=== PATIENT | female | born 1975 | race Caucasian/White ===

== ENCOUNTER 2019-09-23 08:37 | Outpatient (CLI) | payer OTHER, SELFPAY ==
--- NOTE | ~2019-09-23 | MM_ITS ---
EXAMINATION: MM screening [facility] w batsheva HISTORY: Screening mammogram TECHNIQUE: Bilateral rotated lateral cc views. Craniocaudal and mediolateral oblique 3-D tomosynthesi s images were obtained and synthetic 2-D images were generated. CAD analysis was submitted and interp reted. COMPARISON: 09/21/2018, 09/18/2017, 09/13/2016 bilateral digital screening mammogram examinations BREAST PARENCHYMAL COMPOSITION: The breasts are heterogeneously dense, which may obscure small masses . FINDINGS: Stable mild fibroglandular asymmetry. There is no evidence of suspicious mass, calcificatio n, or architectural distortion to suggest malignancy in either breast. There has been no suspicious i nterval change. IMPRESSION: 1. No mammographic evidence of malignancy. 2. Recommend routine screening mammography in one year. BI-RADS Category 2: Benign finding(s). Reviewed, dictated and finalized at location A. 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
== END 2019-09-23 08:38 | disposition home or self-care (01) ==
LOC: ANHIMG 08:40
PROVIDERS: PCP Internal Medicine; Visit Provider Obstetrics & Gynecology
DX: Z12.31 Encounter for screening mammogram for malignant neoplasm of breast (principal)
CPT/HCPCS: 77063; 77067

== ENCOUNTER 2019-12-30 09:27 | Emergency (ER) | payer OTHER, SELFPAY ==
[2019-12-30 09:40] VITALS: BP 107/64; PULSE 73; RESP 18; TEMP 37.1; O2SAT 100
--- NOTE | 2019-12-30 09:42 | ED.SKABFB ---
HPI - Skin/Abscess/Foreign Bdy General Chief complaint: Skin/Abscess/Foreign Body Stated complaint: poison diogenes Time Seen by Provider: 12/30/19 09:43 Source: patient and RN notes reviewed Mode of arrival: ambulatory Limitations: no limitations History of Present Illness HPI narrative: This is a 44 years old female presented office for evaluation itchy rash. She has been working in her yard for the last 5-day doing some cleaning around her property. She is very certain that she had come in contact with poison diogense because her also has it but it is not as bad as her. She took Benadryl and tried calamine lotion with no relief. Related Data Home Medications Medication Instructions Recorded Confirmed metoprolol tartrate 50 mg PO DAILY 12/30/19 12/30/19 sertraline 100 mg PO DAILY 12/30/19 12/30/19 Allergies Allergy/AdvReac Type Severity Reaction Status Date / Time codeine Allergy Intermediate Unknown Verified 12/30/19 09:43 Review of Systems Review of Systems: Narrative: CONSTITUTIONAL: Denies feeling ill ENT: Denies sore mouth CARDIOVASCULAR: Denies chest pain RESPIRATORY: Denies dyspnea GASTROINTESTINAL: Denies abdominal pain, nausea, vomiting SKIN: Reports itchy rash on her arm, chest and neck MUSCULOSKELETAL: Denies joints pain NEUROLOGIC: Denies lightheaded PMFSH Past Medical History Medical History Anxiety and depression Comments At time of signature, I agree with nursing past medical, surgical, social and family history. There is no relevant family history pertinent to the presenting complaint. Exam Narrative: Exam Narrative: GENERAL: This is a well-nourished, well-developed patient, in no apparent distress. THROAT: Mucous membranes moist, posterior pharynx clear. NECK: Neck supple, non-tender without lymphadenopathy, masses or thyromegaly. CARDIOVASCULAR: Regular rate and rhythm without murmurs, gallops, or rubs. RESPIRATORY: Clear to auscultation. Breath sounds equal bilaterally. No wheezes, rales, or rhonchi. GASTROINTESTINAL: Abdomen soft, non-tender, nondistended. Bowel sounds are active. No guarding. NEURO: awake, alert, and oriented to person, place and time. There were no obvious focal neurologic abnormalities. Steady gait EXTREMITIES: right anterior arm noted linear swcyse-hoswjqumx-leaewqs erythema lesions, mid chest noted similar lesion; no obvious rash on her neck; however she has calamine lotion on her it. [place] Coma Scale Eye Opening: Spontaneous 4 [place] Coma Scale Motor: Obeys Commands 6 [place]athon Coma Scale Verbal: Oriented 5 Course Vital Signs Vital signs: Vital Signs Temperature 98.7 F 12/30/19 09:40 Pulse Rate 73 12/30/19 09:40 Respiratory Rate 18 12/30/19 09:40 Blood Pressure 107/64 12/30/19 09:40 Pulse Oximetry 100 12/30/19 09:40 Temperature 98.7 F 12/30/19 09:40 Pulse Rate 73 12/30/19 09:40 Respiratory Rate 18 12/30/19 09:40 Blood Pressure 107/64 12/30/19 09:40 Pulse Oximetry 100 12/30/19 09:40 MDM - Skin/Abscess/Foreign Bdy MDM Narrative Medical decision making narrative: Discharge instructions reviewed with patient, as well as provided in writing per nursing staff. The instructions also include specific and strict return/GO TO THE ER as well as f/u information. All questions have been answered, and the patient deny any further questions with discharge and discharge plan. Differential Diagnosis Differential diagnosis: Likely abscess of skin or subcutaneous tissue, dermatophytosis, urticaria, allergic reaction to drug, cellulitis, eczema, insect bites, impetigo and contact dermatitis Critical Care Time Critical Care Time Critical Care Time: No Discharge Plan Discharge Clinical Impression: Contact dermatitis Qualifiers: Contact dermatitis type: unspecified Contact dermatitis trigger: non-food plants Qualified Code(s): L25.5 - Unspecified contact dermatitis due t
== END 2019-12-30 09:55 | disposition home or self-care (01) ==
PROVIDERS: Emergency Provider Nurse Practitioner; PCP Internal Medicine
DX: L25.5 Unspecified contact dermatitis due to plants, except food (principal); I10 Essential (primary) hypertension
CPT/HCPCS: 99213; G0463

== ENCOUNTER 2020-09-24 07:19 | Outpatient (CLI) | payer OTHER, SELFPAY ==
--- NOTE | ~2020-09-24 | MM_ITS ---
EXAMINATION: MM screening [facility] BI w batsheva HISTORY: Screening TECHNIQUE: Craniocaudal and mediolateral oblique 3-D tomosynthesis images were obtained and synthetic 2-D images were generated. CAD analysis was submitted and interpreted. COMPARISON: Comparison to multiple prior studies sequentially, with oldest reviewed study dated 09/11. BREAST PARENCHYMAL COMPOSITION: The breasts are heterogeneously dense, which may obscure small masses . FINDINGS: There is no evidence of suspicious mass, calcification, or architectural distortion to sugg est malignancy in either breast. There has been no suspicious interval change. IMPRESSION: 1. No mammographic evidence of malignancy. 2. Recommend routine screening mammography in one year. BI-RADS Category 1: Negative Reviewed, dictated and finalized at location A. 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
== END 2020-09-24 07:20 | disposition home or self-care (01) ==
LOC: ANHIMG 07:22
PROVIDERS: PCP Internal Medicine; Visit Provider Obstetrics & Gynecology
DX: Z12.31 Encounter for screening mammogram for malignant neoplasm of breast (principal)
CPT/HCPCS: 77063; 77067

== ENCOUNTER 2020-10-26 14:00 | Outpatient (CLI) | payer OTHER, SELFPAY ==
--- NOTE | 2020-10-26 14:03 | ECG_ITS ---
Measurements Intervals [place] Rate: 75 P: 55 NM: 155 QRS: 59 QRSD: 93 T: 43 QT: 378 QTc: 424 Interpretive Statements SINUS RHYTHM BASELINE ARTIFACT- I, II, AVR, AVL NORMAL ECG Electronically Signed On 10-26-2020 14:19:36 CDT by Peyman Valdez D.O.
== END 2020-10-26 14:01 | disposition home or self-care (01) ==
LOC: ANHSURGERY 14:02
PROVIDERS: PCP Internal Medicine; Visit Provider Obstetrics & Gynecology
DX: Z01.810 Encounter for preprocedural cardiovascular examination (principal); I10 Essential (primary) hypertension
CPT/HCPCS: 93005

== ENCOUNTER → 2020-10-31 01:22 | Outpatient (CLI) | payer OTHER, SELFPAY ==
[2020-10-31 18:53] LABS: SARS-CoV-2 RNA PCR Negative
== END ==
PROVIDERS: PCP Internal Medicine; Visit Provider Obstetrics & Gynecology
DX: Z01.812 Encounter for preprocedural laboratory examination (principal); Z20.822 Contact with and (suspected) exposure to COVID-19
CPT/HCPCS: C9803; U0003; U0005

== ENCOUNTER 2020-11-04 02:16 | Day surgery (SDC) | payer OTHER, SELFPAY ==
[2020-10-20 09:29] VITALS: BMI 30.2
[2020-11-04 11:09] VITALS: BP 111/54; PULSE 61; RESP 16; TEMP 36.2; O2SAT 100
[2020-11-04] MEDS: ACETAMINOPHEN 500 MG TABLET 1000 MG PO (11:24)
[2020-11-04] MEDS: LACTATED RINGERS 1,000 ML 30 ML IV CONT (11:25)
--- NOTE | 2020-11-04 11:42 | WPDANESEPPF ---
Anes - Initial Pre Proc Eval Procedure: Operation Date: 11/04/20 12:45 Proposed Procedures p Hysteroscopy Dilation and Curettage - Nicola Arita MD Date/Time: 11/04/20 11:42 Surgeon: Nicola Arita MD Pre Op Diagnosis: abnornal PAP Patient Data Age: 45 Gender: F Height: 5 ft Weight: 71.6 kg Last Vital Signs Temp 36.2 C L 11/04/20 11:09 Pulse 61 11/04/20 11:09 Resp 16 11/04/20 11:09 BP 111/54 L 11/04/20 11:09 Pulse Ox 100 11/04/20 11:09 Allergies Allergy/AdvReac Type Severity Reaction Status Date / Time codeine Allergy Intermediate Rash Verified 11/04/20 11:07 Home Medications Medication Instructions Recorded Confirmed Type metoprolol tartrate 50 mg PO BID 12/30/19 11/04/20 History sertraline 100 mg PO HS 12/30/19 11/04/20 History biotin 1 caplet BYMOUTH DAILY 10/20/20 11/04/20 History lactobacillus combination no.4 3,000 mmu cells PO DAILY 10/20/20 11/04/20 History [Probiotic] gsyoqmyropcx-Gp-cvxo-minerals 1 tablet PO DAILY 10/20/20 11/04/20 History [Women's Daily Multivitamin] turmeric 400 mg PO DAILY 10/20/20 11/04/20 History Patient hx anesthesia problems: none Family hx anesthesia problems: none PMFSH Past Medical History Medical History Anxiety and depression Family History Family History Mother Hypertension Father Hypertension Social History Social History Smoking packs per day: 1.5 Smoking cigarettes per day: 30.0 Years smoked: 20 Smoking pack-years: 30.00 Smoking status: Former smoker Tobacco type: cigarettes Second hand tobacco smoke exposure: No Smoking end date: 08/24/14 Alcohol intake: never Substance use: never Living arrangements: with family Spiritual care concerns: No Anes - Eval Final PreProcedure Day of Procedure 11/04/20 11:42 Patient weight: overweight Heart: regular rate and rhythm Lungs: clear to auscultation Airway: Mallampati scale class II Neurological: alert and oriented Last oral intake: >/= 8 hours ASA classification: II Emergent: no Anesthetic plan: proceed Anesthesia type and monitoring: general GIVS and standard monitoring Informed Consent: The patient's anesthetic plan and its attendant risks and benefits were discussed with the patient/family/POA. Questions were solicited and answers provided to the satisfaction of the patient/family/POA.
--- NOTE | 2020-11-04 12:12 | PM.IMHP ---
H&P: HPI History of Present Illness Date/Time: 11/04/20 12:12 45 y/o female presents for evaluation of endometrial cells on pap. No irregular bleed and no hx of abN paps. Chief Complaint: abnormal pap smear Review of Systems Review of Systems: All systems reviewed & are unremarkable except as noted in HPI and below PMFSH Past Medical History Medical History Anxiety and depression Family History Family History Mother Hypertension Father Hypertension Social History Social History Smoking packs per day: 1.5 Smoking cigarettes per day: 30.0 Years smoked: 20 Smoking pack-years: 30.00 Smoking status: Former smoker Tobacco type: cigarettes Second hand tobacco smoke exposure: No Smoking end date: 08/24/14 Alcohol intake: never Substance use: never Living arrangements: with family Spiritual care concerns: No Meds Home Medications and Allergies Home Medications Medication Instructions Recorded Confirmed Type metoprolol tartrate 50 mg PO BID 12/30/19 11/04/20 History sertraline 100 mg PO HS 12/30/19 11/04/20 History biotin 1 caplet BYMOUTH DAILY 10/20/20 11/04/20 History lactobacillus combination no.4 3,000 mmu cells PO DAILY 10/20/20 11/04/20 History [Probiotic] zesfgvujgziz-Rm-mkqx-minerals 1 tablet PO DAILY 10/20/20 11/04/20 History [Women's Daily Multivitamin] turmeric 400 mg PO DAILY 10/20/20 11/04/20 History Allergies Allergy/AdvReac Type Severity Reaction Status Date / Time codeine Allergy Intermediate Rash Verified 11/04/20 11:07 Vital Signs Vital Signs - 24 hr 11/04/20 11:09 Temperature 36.2 C L Pulse Rate 61 Respiratory Rate 16 Blood Pressure 111/54 L Pulse Oximetry 100 Exam Const: General: cooperative and healthy appearing Resp: Effort & Inspection: normal respiratory effort Auscultation: clear to auscultation bilaterally Cardio: Rate: regular rate Rhythm: regular rhythm GI: Inspection: normal to inspection Percussion: Yes normal to percussion Auscultation: normal bowel sounds : External Female Exam: normal external appearance Speculum Exam - Vagina: normal appearance of the vagina Speculum Exam - Cervix: normal appearance of the cervix Bimanual exam- vagina & uterus: normal bimanual exam Assessment and Plan Assessment and plan (1) Abnormal Pap smear of cervix: Code(s): R87.619 - Unspecified abnormal cytological findings in specimens from cervix uteri Status: Acute Additional Plan hysteroscopy with uterine curettings.
--- NOTE | 2020-11-04 12:15 | WPDHPUPDATE1 ---
History and Physical Update Update Date/Time: 11/04/20 12:15 History and Physical has been reviewed, including an updated exam of the patient. There are NO changes in the patient's condition. Risks, benefits, and alternatives have been discussed and questions answered. Patient agrees to proceed with procedure.
[2020-11-04] MEDS: KETOROLAC 30 MG/ML VIAL (*BKC) IV PUSH (13:17)
[2020-11-04 13:25] VITALS: BP 107/66; PULSE 63; RESP 10; O2SAT 92
--- NOTE | 2020-11-04 13:28 | PM.OP ---
Procedure Note - Brief Procedure Note - Brief Date of procedure: 11/04/20 Pre-op diagnosis: abnornal PAP Post-op diagnosis: same Procedure performed: Hysteroscopy with uterine curettings Description of procedure: Patient prepped and draped in usual manner for this procedure. Cervix was dilated to allow the hysteroscope to be placed. Hysteroscope revealed slightly thickened tissue. Curettings were obtained with a moderate amount of tissue removed. There is no significant bleeding at this point seizure was considered terminated. Anesthesia: GLMA Surgeon: Nicola Arita MD Estimated blood loss (mL): 25 Drains: No Packing: No Pathology: yes Complications: No immediate complications Condition: stable Disposition: PACU Findings: Minimal endometrial tissue.
[2020-11-04 13:55] VITALS: BP 116/59; PULSE 58; RESP 10
[2020-11-04 14:30] VITALS: BP 106/65; PULSE 53; RESP 14
== END 2020-11-04 14:40 | disposition home or self-care (01) ==
PROVIDERS: PCP Internal Medicine; Visit Provider Obstetrics & Gynecology
PROC: 0U5B8ZZ Destruction of Endometrium, Via Natural or Artificial Opening Endoscopic (ICD-10-PCS; CPT 58563; principal; 2020-11-04 12:45)
DX: R87.619 Unspecified abnormal cytological findings in specimens from cervix uteri (principal); F41.8 Other specified anxiety disorders; Z87.891 Personal history of nicotine dependence
CPT/HCPCS: 58558; 88305; 93005; A9270; C9803; J1100; J1885; J2250; J2405; J2704; J3010; J7030; J7120; U0003; U0005

== ENCOUNTER → 2020-12-28 16:01 | Outpatient (CLI) | payer OTHER, SELFPAY ==
--- NOTE | ~2020-12-28 | XR_ITS ---
XR hip LT min 2V 12/28/2020 16:10 INDICATION: Left hip pain PROCEDURE: 2 views left hip COMPARISON: No prior studies FINDINGS: Fracture, dislocation or subluxation is not identified. The soft tissues appear within norm al limits. No foreign bodies are identified. IMPRESSION: 1: NO ACUTE BONE OR JOINT ABNORMALITY IDENTIFIED. Reviewed, dictated and finalized at location B.
== END ==
PROVIDERS: PCP Internal Medicine; Visit Provider Internal Medicine
DX: M25.552 Pain in left hip (principal)
CPT/HCPCS: 73502

== ENCOUNTER 2021-05-03 01:04 | Day surgery (SDC) | payer OTHER, SELFPAY ==
[2021-04-22 14:06] VITALS: BMI 29.8
--- NOTE | 2021-05-03 07:28 | PM.HPGS ---
History of Present Illness History of Present Illness Consent: Risks, benefits, and alternatives have been discussed and questions answered. Patient agrees to proceed with procedure. Chief complaint: change in bowel habits Narrative: Anjali Colin is a 46 year old female Who has noticed a change in her bowel habits. She has a great deal of urgency with bowel movements and barely makes it to the bathroom sometimes. There is also a strong family history of colon cancer Review of Systems Review of Systems: All systems reviewed & are unremarkable except as noted in HPI and below PMFSH Past Medical History Medical History Anxiety Anxiety and depression Hypertension Family History Family History (Reviewed 05/03/21 @ 09: by Adonay Chinchilla MD) Mother Hypertension Father Hypertension Social History Social History Smoking packs per day: 1 Smoking cigarettes per day: 20.0 Years smoked: 25 Smoking pack-years: 25.00 Smoking status: Former smoker Tobacco type: cigarettes Second hand tobacco smoke exposure: No Smoking end date: 08/24/14 Alcohol intake: never Substance use: never Living arrangements: with family Spiritual care concerns: No Meds Home Medications and Allergies Home Medications Medication Instructions Recorded Confirmed Type metoprolol tartrate 50 mg PO BID 12/30/19 05/03/21 History sertraline 100 mg PO HS 12/30/19 05/03/21 History Probiotic 3,000 mmu cells PO DAILY 10/20/20 05/03/21 History kygujwhmrwtd-Gx-rsri-minerals 1 tablet PO DAILY 10/20/20 05/03/21 History turmeric 400 mg PO DAILY 10/20/20 05/03/21 History Allergies Allergy/AdvReac Type Severity Reaction Status Date / Time codeine Allergy Intermediate Rash Verified 05/03/21 08:58 Exam Resp: Auscultation: clear to auscultation bilaterally Cardio: Rate: regular rate Rhythm: regular rhythm GI: GI Palp: Yes Soft to palpation and No Tenderness to palpation present (GI) Assessment and Plan Assessment and plan (1) Encounter for screening for colorectal malignant neoplasm in high risk patient: Code(s): Z12.11 - Encounter for screening for malignant neoplasm of colon; Z12.12 - Encounter for screening for malignant neoplasm of rectum; Z91.89 - Other specified personal risk factors, not elsewhere classified Status: Acute Assessment and Plan: Colonoscopy with possible biopsy or polypectomy or cautery or injection of substances.
[2021-05-03 08:59] VITALS: BP 125/62; PULSE 70; RESP 18; TEMP 37; O2SAT 97; BMI 28.6
[2021-05-03] MEDS: LACTATED RINGERS 1,000 ML 150 ML IV CONT (09:02)
--- NOTE | 2021-05-03 09:15 | WPDANESEPPF ---
Anes - Initial Pre Proc Eval Procedure: Operation Date: 05/03/21 10:00 Proposed Procedures p Colonoscopy - Adonay Chinchilla MD Date/Time: 05/03/21 09:15 Surgeon: Adonay Chinchilla MD Pre Op Diagnosis: change in bowel habits Patient Data Age: 46 Gender: F Height: 1.55 m Weight: 68.8 kg Last Vital Signs Temp 37.0 C 05/03/21 08:59 Pulse 70 05/03/21 08:59 Resp 18 05/03/21 08:59 BP 125/62 05/03/21 08:59 Pulse Ox 97 05/03/21 08:59 Allergies Allergy/AdvReac Type Severity Reaction Status Date / Time codeine Allergy Intermediate Rash Verified 05/03/21 08:58 Home Medications Medication Instructions Recorded Confirmed Type metoprolol tartrate 50 mg PO BID 12/30/19 05/03/21 History sertraline 100 mg PO HS 12/30/19 05/03/21 History Probiotic 3,000 mmu cells PO DAILY 10/20/20 05/03/21 History dmdepmvpzrpk-Zg-wfgj-minerals 1 tablet PO DAILY 10/20/20 05/03/21 History turmeric 400 mg PO DAILY 10/20/20 05/03/21 History Patient hx anesthesia problems: none Family hx anesthesia problems: none Results Review: All pre-operative results and documents have been reviewed as part of the pre-operative evaluation. ON LICENSE OF [facility] Past Medical History Medical History Anxiety Anxiety and depression Hypertension Family History Family History Mother Hypertension Father Hypertension Social History Social History Smoking packs per day: 1 Smoking cigarettes per day: 20.0 Years smoked: 25 Smoking pack-years: 25.00 Smoking status: Former smoker Tobacco type: cigarettes Second hand tobacco smoke exposure: No Smoking end date: 08/24/14 Alcohol intake: never Substance use: never Living arrangements: with family Spiritual care concerns: No Anes - Eval Final PreProcedure Day of Procedure 05/03/21 09:15 Patient weight: overweight Heart: regular rate and rhythm Lungs: clear to auscultation Airway: Mallampati scale class II Neurological: alert and oriented Last oral intake: >/= 8 hours ASA classification: II Emergent: no Anesthetic plan: proceed Anesthesia type and monitoring: general GIVS and standard monitoring Results Review: All pre-operative results and documents have been reviewed as part of the pre-operative evaluation. Informed Consent: The patient's anesthetic plan and its attendant risks and benefits were discussed with the patient/family/POA. Questions were solicited and answers provided to the satisfaction of the patient/family/POA.
[2021-05-03 09:50] VITALS: BP 105/54; PULSE 72; RESP 25; O2SAT 97
[2021-05-03 10:00] VITALS: BP 104/66; PULSE 69; RESP 20; O2SAT 97
[2021-05-03 10:10] VITALS: BP 117/69; PULSE 63; RESP 20; O2SAT 99
== END 2021-05-03 10:35 | disposition home or self-care (01) ==
PROVIDERS: PCP Internal Medicine; Visit Provider Internal Medicine Gastroenterology
PROC: 0DJD8ZZ Inspection of Lower Intestinal Tract, Via Natural or Artificial Opening Endoscopic (ICD-10-PCS; CPT 45378; principal; 2021-05-03 10:00)
DX: Z12.11 Encounter for screening for malignant neoplasm of colon (principal); F41.8 Other specified anxiety disorders; I10 Essential (primary) hypertension; Z87.891 Personal history of nicotine dependence
CPT/HCPCS: 45378; J2001; J2704; J7120

== ENCOUNTER 2021-10-07 09:19 | Outpatient (CLI) | payer OTHER, SELFPAY ==
--- NOTE | ~2021-10-07 | MM_ITS ---
EXAMINATION: MM screening [facility] BI w batsheva HISTORY: Screening mammogram TECHNIQUE: Craniocaudal and mediolateral oblique 3-D tomosynthesis images were obtained and synthetic 2-D images were generated. CAD analysis was submitted and interpreted. COMPARISON: 09/24/2020, 09/23/2019, 09/21/2018 BREAST PARENCHYMAL COMPOSITION: The breasts are heterogeneously dense, which may obscure small masses . FINDINGS: There is no suspicious mass, calcification, or architectural distortion to suggest malignan cy in either breast. There has been no suspicious interval change. IMPRESSION: 1. No mammographic evidence of malignancy. 2. Recommend routine screening mammography in one year. BI-RADS Category 1: Negative Reviewed, dictated and finalized at location A.
== END 2021-10-07 09:20 | disposition home or self-care (01) ==
LOC: ANHIMG 09:20
PROVIDERS: PCP Internal Medicine; Visit Provider Obstetrics & Gynecology
DX: Z12.31 Encounter for screening mammogram for malignant neoplasm of breast (principal)
CPT/HCPCS: 77063; 77067

== ENCOUNTER 2022-10-12 10:13 | Outpatient (CLI) | payer OTHER, SELFPAY ==
--- NOTE | ~2022-10-12 | MM_ITS ---
EXAMINATION: MM screening [facility] BI w batsheva HISTORY: Screening TECHNIQUE: Craniocaudal and mediolateral oblique 3-D tomosynthesis images were obtained and synthetic 2-D images were generated. CAD analysis was submitted and interpreted. COMPARISON: Comparison to multiple prior studies sequentially, with oldest reviewed study dated 09/13. BREAST PARENCHYMAL COMPOSITION: The breasts are heterogeneously dense, which may obscure small masses . FINDINGS: There is no evidence of suspicious mass, calcification, or architectural distortion to sugg est malignancy in either breast. There has been no suspicious interval change. IMPRESSION: 1. No mammographic evidence of malignancy. 2. Recommend routine screening mammography in one year. BI-RADS CATEGORY 1 - NEGATIVE Reviewed, dictated and finalized at location A.
== END 2022-10-12 10:14 | disposition home or self-care (01) ==
LOC: ANHIMG 10:16
PROVIDERS: PCP Internal Medicine; Visit Provider Obstetrics & Gynecology
DX: Z12.31 Encounter for screening mammogram for malignant neoplasm of breast (principal)
CPT/HCPCS: 77063; 77067

== ENCOUNTER 2023-11-25 08:32 | Outpatient (CLI) | payer OTHER, SELFPAY ==
--- NOTE | ~2023-11-25 | MM_ITS ---
EXAMINATION: MM screening [facility] BI w batsheva HISTORY: Screening mammogram TECHNIQUE: Craniocaudal and mediolateral oblique 3-D tomosynthesis images were obtained and synthetic 2-D images were generated. CAD analysis was submitted and interpreted. COMPARISON: 10/12/2022, 10/07/2021 bilateral screening mammogram examinations BREAST PARENCHYMAL COMPOSITION: The breasts are heterogeneously dense, which may obscure small masses . FINDINGS: There is no evidence of suspicious mass, calcification, or architectural distortion to sugg est malignancy in either breast. There has been no suspicious interval change. IMPRESSION: 1. No mammographic evidence of malignancy. 2. Recommend routine screening mammography in one year. BI-RADS Category 1: Negative Reviewed, dictated and finalized at location A.
== END 2023-11-25 08:33 | disposition home or self-care (01) ==
LOC: ANHIMG 08:35
PROVIDERS: PCP Internal Medicine; Visit Provider Obstetrics & Gynecology
DX: Z12.31 Encounter for screening mammogram for malignant neoplasm of breast (principal)
CPT/HCPCS: 77063; 77067

== ENCOUNTER 2024-04-23 08:44 | Outpatient (CLI) | payer OTHER, SELFPAY ==
--- NOTE | ~2024-04-23 | XR_ITS ---
Lumbosacral Spine: AP and lateral views Clinical History: Pain Findings: The normal lordotic curve is maintained. The vertebral bodies and posterior elements are i ntact. The intervertebral disc spaces are preserved. The sacroiliac joints are normally outlined. T here is a 17 mm peripherally calcified structure projecting over the left T12 transverse process. Impression: No significant abnormality of the lumbar spine itself. 17 mm peripherally calcified structure overlying left T12 transverse process. Diagnostic consideratio ns include renal stone or perhaps peripherally calcified aneurysm. Consider CT to further evaluate, a s indicated. Reviewed, dictated and finalized at location M. Impression: No significant abnormality of the lumbar spine itself. 17 mm peripherally calcified structure overlying left T12 transverse process. D iagnostic considerations include renal stone or perhaps peripherally calcified aneurysm. Consider CT to further evaluate, as indicated.
--- NOTE | ~2024-04-23 | XR_ITS ---
XR sacroiliac joints min 3V Ordering provider: Reid Simpson, History: . Low back pain . Comparison: None. FINDINGS: BONES: No acute fracture or dislocation. JOINTS: The bilateral sacroiliac joint spaces appear well maintained. No bony fusion of the sacroilia c joints or bony erosions. SOFT TISSUES: Unremarkable. IMPRESSION: NO ACUTE OSSEOUS ABNORMALITY. NORMAL SACROILIAC JOINTS. Reviewed, dictated and finalized at location A.
== END 2024-04-23 08:45 | disposition home or self-care (01) ==
PROVIDERS: PCP Internal Medicine; Visit Provider Internal Medicine
DX: M54.50 Low back pain, unspecified (principal)
CPT/HCPCS: 72100; 72202

== ENCOUNTER 2024-08-12 09:47 | Outpatient (CLI) | payer OTHER, SELFPAY ==
--- NOTE | ~2024-08-12 | XR_ITS ---
EXAMINATION: XR knee RT 3V DATE: 08/12/2024 10:00 INDICATION: Right knee pain. TECHNIQUE: 3 views of right knee including standing views were obtained. COMPARISON: None. FINDINGS: Alignment is normal. No fracture. There is mild tricompartmental osteoarthritis. There is a small knee joint effusion. IMPRESSION: 1. Mild right knee osteoarthritis. 2. Small right knee joint effusion. Reviewed, dictated and finalized at location B. 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
== END 2024-08-12 09:48 | disposition home or self-care (01) ==
PROVIDERS: PCP Internal Medicine; Visit Provider Internal Medicine
DX: M17.11 Unilateral primary osteoarthritis, right knee (principal); M25.461 Effusion, right knee
CPT/HCPCS: 73562

== ENCOUNTER 2024-10-12 08:14 | Emergency (ER) | payer OTHER, SELFPAY ==
--- OUTSIDE RECORDS SUMMARY | 2024-10-12 08:16 | XMS_ITS | Encounter Summary ---
Author Organization [facility] Address [address] [place] [address] Care Team Providers Care Technology Architect Name Role Phone Reid Simpson MD Primary Care Provider [phone] Encounter Details Date Type Department Care Team (Late st Contact Info) Description 06/24/2004 Outpatient Historical [facility] [address] [place] [id number] Anjali Brown MD [facility] [place] [phone] Social History Tobacco Use Types Packs/Day Years Used Date Smoking Tobacco: Never Assessed Comments Unknown Sex and Gender Information Value Date Recorded Sex Assigned at Not on file 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
--- OUTSIDE RECORDS SUMMARY | 2024-10-12 08:16 | XMS_ITS | Encounter Summary ---
Author Organization [facility] Address [address] [place] [address] Care Team Providers Care [employer] Headgate Operator Name Role Phone Reid Simpson MD Primary Care Provider [phone] Encounter Details Date Type Department Care Team (Late st Contact Info) Description 06/24/2004 Outpatient [facility] [address] [place] [id number] Anjali Brown MD [facility] [place] [phone] Social History Tobacco Use Types Packs/Day Years Used Date Smoking Tobacco: Never Assessed Comments Unknown Sex and Gender Information Value Date Recorded Sex Assigned at Not on file 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
--- OUTSIDE RECORDS SUMMARY | 2024-10-12 08:17 | XMS_ITS | Data Portability ---
Author Organization [facility] [employer], Main Office Address [address] [place] [address] Assessment No assessment recorded. Plan of Treatment Reminders Order Date Submit Date Provider Last Modified By Organization Details Last Modified Time Details Appointments Any 15 2024 08:00A Gabriel Simpson MD Not available Not available Not available Lab vitamin D, 25-hydrox y, total, serum [email or web address] (Lab), [address] [place], [address], 08/21/2024 09:13:30 lipid panel, serum 2024 [facility] [address] [place], [address], 08/14/2024 15:14:02 glycohemo globin, total, blood [address] (Lab), [address] [place], [address], 08/21/2024 09:13:29 CBC [email or web address] (Lab), [address] [place], [address], 08/21/2024 09:13:29 CMP, serum or plasma [address] (Lab), [address] [place], [address], 08/21/2024 09:13:29 ferritin, serum or plasma 2023 024 [facility] (Lab), [address] [place], [address], 08/22/2023 21:53:34 iron, serum 2023 024 [facility] (Lab), [address] [place], [address], 08/22/2023 22:02:36 Referral None recorded. Procedures None recorded. Surgeries None recorded. Imaging XR, knee, 3 view 2024 025 [facility] Not available 08/12/2024 14:22:30 XR, lumbar spine 2023 024 [facility] Not available 04/23/2024 15:36:47 XR, sacroilia c joint(s) 2023 024 [facility] Not available 04/23/2024 15:36:48 Medication Orders meloxicam 7.5 mg tablet 2024 025 [facility][id number], [address], [id number], 08/12/2024 09:07:18 Medrol (Juels) 4 mg tablets in a dose pack 2023 024 [email or web address] [facility] #79356, [address], [place], [place], [id number], 07/04/2024 14:33:01 ropinirol e 2 mg tablet 2023 024 [facility] #72362, [address], [place], [place], [id number], 11/06/2023 18:32:21 metoprolo l tartrate 50 mg tablet 2023 024 [facility] #95237, [address], [place], [place], [id number], 11/06/2023 18:38:38 sertralin e 100 mg tablet 2023 024 [facility] #14590, [address], [place], [place], [id number], 11/06/2023 18:38:32 ropinirol e 1 mg tablet 2023 024 [email or web address] [facility] #81990, [address], [place], [place], [id number], 11/06/2023 15:52:19 Patient TargetsNo targets recorded. Patient Instructions Encounter Date Encounter Id Patient Instructions Last Modified By Organization Details Last Modified Time 11/06/2023 [id number] risk assessment* [place] [address] Not availabl e 11/06/2023 15:53:47 INFLUENZA VACCIN E TD/TDAP Recommended today, patient declined Ordered Patient will get at local pharmacy/health department PNEUMONIA VACCINE Ordered Recommend ed today, patient declined Patient will get at local pharmacy/health department Recomm ended at age 64 SHINGLES Not indicated MAMMOGRAM: Last Mammogram __ No screening necessary patient is up to date DEXA SCAN CERVICAL SCREENING/PELVIC EXAMINATION Recommended today, but patient declined Ordered No screening necessary patient is up to date COLORECTAL SCREENING: Last Colonoscopy DEPRESSION SCREENING Negative BMI Overweight continue your current weight loss efforts try to lose 5% of your body weight try to lose 10% of your body weight NUTRITION PHYSICAL ACTIVITY Need more exercise/physical activity VISION ALCOHOL USE No alcohol use TOBACCO USE non smoker LUNG CANCER SCREENING Non Smoker-not indicated SEXUALLY ACTIVE HEPATITIS C SCREENING Not indicated GLUCOSE SCREENING LIPID SCREENING [email or web address] Not available 11/06/2023 15:33:56 Reason for Referral None Reported. Results Created Date Observation Date Name Description Value Unit Range Abnormal Flag Note LastModifiedBy Organization Detail LastModifiedTime 08/22/19 24 08/22/2023 MARION TIN ferritin 29 NG/mL 6.24-1 37 Not Available [facility] (Lab) [address] [place], [address], 08/22/2023 21:53:34 08/22/19 24 08/22/2023 IRON SERUM /FE iron 100 mcg/d L 42-175 Not Available [facility] (Lab) [address] [place], [address], 08/22/2023 22:02:36 04/23/20 24 04/23/2024 XR, lumba r spine No observ ation record ed. [email or web address] Not Available 08/2023 12:44:18 04/23/20 24 04/23/2024 XR, sacro iliac joint (s) No observ ation record ed. [email or web address] Not Available 08/2023 12:44:19 08/12/19 25 08/12/2024 XR, knee, 3 view No observ ation record ed. [email or web address] Not Available 2024 14:10:42 Result Notes None recorded. Problems Name Problem SNOMED Code Status Onset Date Resolution Date Notes Provider Name and Address Organization Details Recorded Time Mammograp hy abnormal 864103626 Completed Not Available [facility] 3 00:49:22 Lateral epicondyl itis 013442977 Completed Not Available [facility] 3 00:49:22 Adult health examinati on Active 2020 Not Available [facility] 3 00:49:22 Finding of body mass index 966170182 Completed 202107/14/2022 Not Available [facility] 3 00:49:22 Thrombocy topenic disorder 050884698 Active Not Available [facility] 3 00:49:23 Tachycard ia 2069654 Active Not Available [facility] 3 00:49:23 Depressiv e disorder 13658524 Active Not Available [facility] 3 00:49:23 Multiple joint pain 32622350 Completed 202107/20/2022 Not Available [facility] 3 00:49:23 Multiple joint pain 82168948 Completed 202107/14/2022 Not Available [facility] 3 00:49:23 Rosacea 222420299 Active Not Available [facility] 3 00:49:23 Anxiety 67764689 Active Not Available [facility] 3 00:49:23 Hyperlipi demia 90540411 Active 2021 Not Available [facility] 3 00:49:23 Essential hypertens ion 62696971 Active 2020 Not Available [facility] 3 00:49:23 Diarrhea 71129030 Completed 202103/07/2023 Baylee frias RMA null, [place] - [facility] [employer] 3 10:44:31 Diarrhea 89020466 Completed 202107/14/2022 Baylee frias RMA null, [place] - [facility] [place] [facility] 3 10:44:31 Mammograp hic calcifica tion of breast 408078723 Completed Not Available [facility] 3 00:49:24 Rhinitis 67126036 Active Not Available [facility] 3 00:49:24 Smoker 60608082 Active Not Available [facility] 3 00:49:24 Fatigue 15622460 Completed 202107/14/2022 Reid Simpson MD [address], [address], [place], [address] , [facility] [place] [facility] 4 15:55:54 Ex-smoker 9202787 Active 2022 Baylee frias RMA null, [place] - [facility] [place] [facility] 3 10:44:49 Neck pain 23686329 Active 2022 Reid Simpson MD [address], [address], [place], [address] , [facility] [place] [facility] 3 11:03:14 Liver function tests outside reference range 028742540 Active 2022 Reid Simpson MD [address], [address], [place], [address] , [facility] - [facility] 3 15:47:44 Restless legs 63254910 Active 2023 MANUELA Mendieta null, [place] - [facility] 4 09:08:55 Fatigue 77692142 Active 2023 Reid Simpson MD [address], [address], [place], [address] , [facility] [place] [facility] 4 15:55:54 Hyperglyc emia 84853387 Active 2023 Reid Simpson MD [address], [address], [place], [address] , [facility] - [facility] [place] [facility] 4 10:36:37 Low back pain 478099914 Active 2023 Reid Simpson MD [address], [address], [place], [address] , [facility] [place] [facility] 4 09:14:25 Pain of right knee joint 23780201847 4100 Active 2024 Reid Simpson MD [address], [place], [address] , [facility] - [facility] [place] [facility] 5 09:01:36 Vitamin D deficienc y 86107773 Active 2024 Laura Landrum MA null, [place] - [facility] [place] [facility] 5 15:14:19 Pain of bilateral knee joints 70232816351 4104 Active 2024 Reid Simpson MD [address], [place], [address] , [facility] 5 16:42:53 Problem Notes None recorded. Procedures Surgical History Date Name Laterality Status Provider Name and Address Organization Details Recorded Time 1 [employer] Surgery completed Not Available [facility] 09/22/19 00:44:19 1 Date of Last Pap Smear completed Not Available [facility] 09/21/2022 00:44:14 1 Most Recent Mammogram completed Not Available [facility] 09/21/2022 00:44:14 7 section completed Not Available [facility] 09/21/2022 00:44:19 0 section completed Not Available [facility] 09/21/2022 00:44:19 [employer] Surgery completed Not Available [facility] 09/21/2022 00:44:19 [employer] Surgery completed Not Available [facility] 09/21/2022 00:44:19 Imaging Results Imaging Date Name Status LastModified by Organiz ation Details LastModified Time 04/23/2024 XR, lumbar spine completed [email or web address] Information not available 04/24/2024 12:44:18 04/23/2024 XR, sacroiliac joint(s) completed [email or web address] Information not available 04/24/2024 12:44:19 08/12/2024 XR, knee, 3 view completed [email or web address] Information not available 08/13/2024 14:10:42 Procedure Notes None recorded. Medical Equipment None Reported. Allergies Allergen ID Allergen Name Allergen Category Reaction Reaction Severity Criticality Documentation Date Start Date Code Code System Note Provider Name and Address Organization Details Recorded Time 781 codeine medicatio n rash Not available Not available 09/21/2022 2670 RxNorm Not Available [facility] 00:56:25 Medications Name Sig Start Date Stop Date Status Note LastModified by Organization Details LastModified Time cyclobenz aprine 10 mg tablet Take 1 tablet every day by oral route at bedtime. 07/05 completed Not Available Not Available Not Available amoxicill in 500 mg capsule TAKE 1 CAPSULE BY MOUTH THREE TIMES A DAY FOR 7 DAYS 09/22 completed Not Available Not Available Not Available ropinirol e 1 mg tablet TAKE 1 TABLET BY MOUTH EVERY DAY 11/05 completed Not Available Not Available Not Available azithromy kiki 250 mg tablet TAKE 2 TABLETS BY MOUTH FOR 1 DAY THEN TAKE 1 TABLET BY MOUTH DAILY FOR 4 DAYS 07/14 completed Not Available Not Available Not Available ibuprofen 800 mg tablet TAKE ONE TABLET BY MOUTH THREE TIMES A DAY NEEDED FOR PAIN 07/12 completed Not Available Not Available Not Available fluconazo le 150 mg tablet TAKE 1 TABLET BY MOUTH FOR 1 DAY 12/29 completed Not Available Not Available Not Available benzonata te 200 mg capsule Take 1 capsule 3 times a day by oral route. active Not Available Not Available No t Available clarithro mycin 500 mg tablet active Not Available Not Available No t Available Medrol (Jules) 4 mg tablets in a dose pack take as directed 07/04 completed Not Available Not Available Not Available sertralin e 100 mg tablet TAKE 1 TABLET BY MOUTH EVERY DAY 2023 active ANDRES 04/23/24 NOV 08/12/24 ok to rf Not Available Not Available Not Available ciproflox acin 250 mg tablet TAKE 1 TABLET BY MOUTH TWICE DAILY FOR 5 DAYS 07/12 completed Not Available Not Available Not Available tramadol 50 mg tablet Take 1 tablet every 8 hours by oral route as needed. 2024 active Not Available Not Available Not Avai lable triamcino lone acetonide 0.1 % topical cream active Not Available Not Available Not Available amoxicill in 500 mg tablet Take 1 tablet 3 times a day by oral route for 7 days. 09/22 completed Not Available Not Available Not Available meloxicam 7.5 mg tablet TAKE 1 TABLET BY MOUTH EVERY DAY 2024 active ANDRES 08/12/24 NOV 01/21/25 ok to rf Not Available Not Available Not Available hydrocort isone 1 % topical cream APPLY A THIN LAYER TO THE AFFECTED AREA(S) BY TOPICAL ROUTE 2 TIMES PER DAY active Not Available Not Available No t Available ropinirol e 2 mg tablet Take 1 tablet every day by oral route at bedtime. 2023 active ANDRES 04/23/24 NOV 08/12/24 ok to rf Not Available Not Available Not Available prednison e 50 mg tablet TAKE 1 TABLET BY MOUTH EVERY DAY FOR 7 DAYS active Not Available Not Available No t Available metoprolo l tartrate 50 mg tablet TAKE 1 TABLET BY MOUTH TWICE DAILY 2023 active ANDRES 04/23/24 NOV 08/12/24 ok to rf Not Available Not Available Not Available hydroxyzi ne HCl 25 mg tablet Take 1 tablet 3 times a day by oral route. active Not Available Not Available No t Available ergocalci ferol (vitamin D2) 1,250 mcg (50,000 unit) capsule Take 1 capsule every week by oral route for 90 days. 2024 active per 08/13/24 lab results / ds Not Available Not Available Not Available fluticaso ne propionat e 50 mcg/actua tion nasal spray,cece pension active Not Available Not Available Not Available metronida zole 1 % topical gel APPLY TO THE AFFECTED AREA(S) BY TOPICAL ROUTE ONCE DAILY ; RUB IN GENTLY AND COMPLETE LY 08/26 completed Not Available Not Available Not Available Zoloft 2013 active Not Available Not Available Not Avai lable biotin 07/12 completed Not Available Not Available Not Available multivita min 07/05 completed Not Available Not Available Not Available Probiotic 2020 active Not Available Not Available Not Avai lable turmeric 2020 active Not Available Not Available Not Avai lable Fluarix Quad (PF) 60 mcg (15 mcg x 4)/0.5 mL IM syringe active Not Available Not Available Not Available Women's 50 Plus Advanced active Not Available Not Available Not Available Vitals Date Recorded Body height Body mass index (BMI) Body weight Body temperature Oxygen saturation Oxygen saturation in Arterial blood by Pulse oximetry Heart rate Systolic blood pressure Diastolic blood pressure Provider Name and Address Organization Details Last Updated DateTime 4 157.48 cm 29.3 kg/m2 50845.7 8 g 97.2 [degF] 97 % 97 % 72 /min 124 mm[Hg] 76 mm[Hg] Renea Desai CMA [place] [employer] [facility] [employer] 4 15:31:54 Date Recorded Body height Body mass index (BMI) Body weight Heart rate Oxygen saturation Oxygen saturation in Arterial blood by Pulse oximetry Systolic blood pressure Diastolic blood pressure Provider Name and Address Organization Details Last Updated DateTime 4 157.48 cm 30.1 kg/m2 60504.9 4 g 72 /min 96 % 96 % 116 mm[Hg] 68 mm[Hg] MANUELA Tru[place] [employer] [facility] [employer] 4 15:25:40 Date Recorded Body height Body mass index (BMI) Body weight Body temperature Heart rate Oxygen saturation Oxygen saturation in Arterial blood by Pulse oximetry Systolic blood pressure Diastolic blood pressure Provider Name and Address Organization Details Last Updated DateTime 4 157.48 cm 29.6 kg/m2 22865.9 6 g 97.2 [degF] 71 /min 97 % 97 % 120 mm[Hg] 68 mm[Hg] MANUELA Nixon [employer] [facility] [employer] 4 09:48:07 Date Recorded Body height Body mass index (BMI) Body weight Heart rate Oxygen saturation Oxygen saturation in Arterial blood by Pulse oximetry Body temperature Systolic blood pressure Diastolic blood pressure Provider Name and Address Organization Details Last Updated DateTime 4 157.48 cm 28.9 kg/m2 57898.5 9 g 63 /min 97 % 97 % 97.1 [degF] 142 mm[Hg] 80 mm[Hg] MANUELA Nixon [place] [employer] [facility] [employer] [facility] 4 09:05:53 Date Recorded Body height Body mass index (BMI) Body weight Body temperature Heart rate Oxygen saturation Oxygen saturation in Arterial blood by Pulse oximetry Systolic blood pressure Diastolic blood pressure Provider Name and Address Organization Details Last Updated DateTime 5 157.48 cm 29.1 kg/m2 86503.1 9 g 97.2 [degF] 65 /min 98 % 98 % 124 mm[Hg] 74 mm[Hg] Baylee morgan [place] [employer] [facility] [employer] 5 08:41:08 Social History Question Answer Notes LastModified by Organizat ion Details LastModified Time Tobacco Smoking Status Never Smoker quit 2014 Not Available [facility] 09/21/2022 00:42:23 What Is Your Level Of Alcohol Consumption? None [id number] Information not available 09/21/2022 What Is Your Level Of Caffeine Consumption? Moderate [id number] Information not available 09/21/2022 How Much Tobacco Do You Chew? None [id number] Information not available 09/21/2022 What Type Of Diet Are You Following? REGULAR [id number] Information not available 09/21/2022 Which Illicit Or Recreational Drugs Have You Used? None [id number] Information not available 09/21/2022 Do You Or Have You Ever Used E-cigarettes Or Vape? Never Used Electronic Cigarettes [id number] Information not available 09/21/2022 What Is Your Occupation? [employer] [id number] Information not available 09/21/2022 What Was The Date Of Your Most Recent Tobacco Screening? 12/28/2020 [id number] Information not available 09/21/2022 At What Age Did You Start Smoking Tobacco? 15 [id number] Information not available 09/21/2022 Do You Or Have You Ever Used Smokeless Tobacco? Never Used Smokeless Tobacco [id number] Information not available 09/21/2022 Do You Use Sunscreen Routinely? Yes [id number] Information not available 09/21/2022 How Many Years Have You Smoked Tobacco? 20 [id number].[id number] Information not available 09/21/2022 Sex: Female Functional Status Question Answer Note LastModified by Organizat ion Details LastModified Time What is your exercise level? Moderate [id number] Information not available 09/21/2022 Mental Status None recorded. Family History Relationship Description Onset Age of this Age Resolved Age Notes LastModified by Organization Details LastModified Time Father Hypertensive disorder [id number] Not available 09/21/2022 00:44:20 Paternal Grandmother Malignant tumor of lung [email or web address] Not available 2024 08:28:28 Medical History Condition Response ANXIETY DISORDER Y FEMALE PROBLEMS / INFECTIONS DEPRESSION (INCLUDING POST ) Y Gynecological History Statement/Question Response Abnormal Pap Y Date of Last Mammogram 09/23/2019 Date of LMP 10/09/2020 Date of Last Pap Smear 09/28/2020 Current Control Method Tubal Ligat ion Age at Menarche 12 Most Recent Mammogram 09/24/2020 Obstetrics History GPAL:G 2 P 2 0 0 2 Type Value Full Term 2 Living 2 Total 2 Immunizations Vaccine Type Date Status Note Provider Nam e and Address Organization Details Recorded Time TST-PPD intradermal 1 completed Not Available [facility] 09/21/2022 00:56:07 TST-PPD intradermal 8 completed Not Available [facility] 09/21/2022 00:56:07 Influenza, split virus, quadrivalent, preservative 1 completed Not Available [facility] 09/21/2022 00:56:07 COVID-19, mRNA, LNP-S, PF, 30 mcg/0.3 mL dose 1 completed Not Available [facility] 09/21/2022 00:56:07 COVID-19, mRNA, LNP-S, PF, 30 mcg/0.3 mL dose 1 completed Not Available [facility] 09/21/2022 00:56:07 Influenza, split virus, quadrivalent, preservative 0 completed Not Available [facility] 09/21/2022 00:56:07 Influenza, split virus, quadrivalent, PF 2 completed Not Available [facility] 09/21/2022 00:56:08 Past Encounters Encounter ID Performer Location Encounter Start Date Encounter Closed Date Diagnosis/Indication Diagnosis SNOMED-CT Code Diagnosis ICD10 Code Diagnosis Note [id number] _ATHENA_M IGRATION_ DEFAULT_1 _1 , 09/23/2020 00:00:00 09/23/2020 09:57:09 [id number] _ATHENA_M IGRATION_ DEFAULT_1 _1 , 10/26/2020 00:00:00 10/26/2020 17:23:54 [id number] _ATHENA_M IGRATION_ DEFAULT_1 _1 , 11/20/2020 00:00:00 11/20/2020 09:35:52 [id number] [facility] [address] [address] 12/15/2020 00:00:00 12/15/2020 10:19:49 [id number] [facility] [address] [address] 12/28/2020 00:00:00 12/28/2020 16:40:25 [id number] [facility] [address] [address] 04/09/2021 00:00:00 04/09/2021 15:09:15 [id number] [facility] [address] [address] 07/12/2021 00:00:00 07/12/2021 10:35:52 [id number] [facility] [address] [facility] [place] [address] 12/29/2021 00:00:00 12/29/2021 13:32:48 [id number] [facility] Internal Med [address] [facility] [place] [address] 07/14/2022 00:00:00 07/14/2022 11:02:55 [id number] Reid Simpson MD [facility] Internal Med [facility] [address] [facility] [place] [address] 03/07/2023 10:14:09 03/07/2023 11:07:34 Anxiety 94313836 F41.9 stable Essential hypertension 20574917 I10 under control Depressive disorder 3548 9007 F32.9 under control Hyperlipidemia 60456611 E78.5 advised to watch diet Thrombocyt openic disorder 730164369 D69.6 stable Ex-smoker 0533790 Z87.89 1 Quit at the age of 39 Adult heal th examination 686827462 Z00.00 Mammo- 3Col onoscopy- 04/2021- Dr. Chinchilla. - in chartCovid - 1 vaccineFlu 2020 Neck pain 03359123 M54.2 [id number] Reid Simpson MD [facility] Internal Med [facility] [address] [facility] [place] [address] 07/05/2023 15:23:35 07/05/2023 15:48:20 Adult health examination 719992085 Z00.00 Z13.220 Mammo- 3Col onoscopy- 04/2021- Dr. Chinchilla. - in chartCovid - 1 vaccineFlu - 2022 Depressive disorder 3548 9007 F32.9 under control Anxiety 65498358 F41.9 under control Essential hypertension 05001248 I10 under control Hyperlipidemia 10525074 E78.5 advised to watch diet Thrombocyt openic disorder 143283257 D69.6 stable Ex-smoker 8232586 Z87.89 1 Quit at the age of 39 Liver func tion tests outside reference range 614081955 R94.5 minimal, advised to be on the low fat diet [id number] Reid Simpson MD [facility] Internal Med [address] [facility] [place] [address] 08/22/2023 15:13:28 08/22/2023 16:06:30 Essential hypertension 79492164 I10 under control, could be up due to cold meds, now better Restless legs 51287488 G 25.81 [id number] Reid Simpson MD [facility] Internal [facility] [address] [facility] [place] [address] 11/06/2023 15:20:05 11/06/2023 15:55:26 Adult health examination 801295921 Z00.00 Mammo- ol onoscopy- 04/2021- Dr. Chinchilla. - in chartCovid - 1 vaccineFlu - 2022 Depression screening 171 176106 Z13.31 Anxiety 32570109 F41.9 under control Depressive disorder 3548 9007 F32.9 under control Essential hypertension 22542621 I10 under control Hyperlipidemia 77582784 E78.5 advised to watch diet Thrombocyt openic disorder 416616709 D69.6 stable Ex-smoker 8708681 Z87.89 1 Quit at the age of 39 Liver func tion tests outside reference range 689956656 R94.5 lose weight Restless legs 12880728 G 25.81 ^ the dose Fatigue 49088579 R53.83 may need sleep study [id number] Reid Simpson MD [facility] Internal [facility] [address] [facility] [place] [address] 02/28/2024 09:40:37 02/28/2024 10:36:17 Adult health examination 092709048 Z00.00 Mammo- 09/2023 Osmel (not in chart)[place] noscopy- 04/2021- Dr. Chinchilla. - in chartCovid - 1 vaccineFlu - 2022 Anxiety 72086311 F41.9 under control Depressive disorder 3548 9007 F32.9 under control Essential hypertension 90121787 I10 under control Hyperlipidemia 15773812 E78.5 advised to watch diet Thrombocyt openic disorder [id number] D69.6 improved Ex-smoker 8103811 Z87.89 1 Quit at the age of 39, smoked 1ppd x 20 yrs, wants to get LDCT next time Liver func tion tests outside reference range 044835841 R94.5 lose 10 lbs weight by next visit Restless legs 89116805 G 25.81 much better Fatigue 79021988 R53.83 improved Hyperglycemia 19410664 R 73.9 labs next time, watching diet [id number] Reid Simpson MD [facility] Internal Med [address] [facility] [place] [address] 04/23/2024 08:58:18 04/23/2024 09:24:23 Low back pain [id number] M54.50 stretching discussed [id number] Reid Simpson MD [facility] Internal Med [address] [facility] [place] [address] 08/12/2024 08:27:07 08/12/2024 09:16:26 Anxiety 41113168 F41.9 under control Depressive disorder 3548 9007 F32.9 under control Essential hypertension 82958961 I10 under control Hyperlipidemia 94588608 E78.5 advised to watch diet Thrombocyt openic disorder 001711841 D69.6 improved Ex-smoker 3114128 Z87.89 1 Quit at the age of 39, smoked 1ppd x 20 yrs, wants to get LDCT next time Liver func tion tests outside reference range 266257854 R94.5 labs Restless legs 35764483 G 25.81 much better Adult heal th examination 601664541 Z00.00 Mammo- 09/2023 Osmel (not in chart)[place] noscopy- 04/2021- Dr. Chinchilla. - in chartCovid - 1 vaccineFlu - Declined Hyperglycemia 65840045 R 73.9 watching diet Long-term drug therapy 514922292 Z79.891 Pain of ri ght knee joint 1688780554 69182 M25.561 Health Concerns Section Related Observation LastModified by Organization Detai ls LastModified Time None Recorded Concern Status LastModified by Organization Details LastModified Time None Recorded Advance Directives Directive None Recorded Payers Encounter Date Sequence Insurance Name Policy Number Policy Velazquez Covered Member ID Velazquez Member ID Guarantor Name 08/22/2023 1 [facility] [id number] Anjali Colin [id number] Anjali Colin 11/06/2023 1 [facility] [id number] Anjali Col[place]ford [id number] Anjali [place] 02/28/2024 1 [facility] [id number] Anjali Colin [id number] Anjali [place] 04/23/2024 1 [facility] [id number] Anjali Colin [id number] Anjali [place] 08/12/2024 1 [facility] [id number] Anjali [place] [id number] Anjali Colin Notes Date Note Type Note Provider Name and Address Organization Details Recorded Time 08/22/2023 text/html She is here toda y for elevated b/pHome monitor it was 140/80. Woke up feeling off, darleen foggy headed and thought her b/p was off. She had been taking Sudafed. today its been normal 120/70Her blood pressure here today was 124/76.Her monitor showed 133/80NO CP OR SOBAlso C/o RLS, Has had ot off an on in the past but recently getting bothered by it. Reid Simpson MD [address], [place], [address], [employer] 08/22/2023 16:00:15 11/06/2023 text/html Doing fine, comp liant to medications, no side affects, here for follow up. Depression- anxiety and mood under control. no side effects from the med, symptoms are under controlMeds- sertraline 100 mg qd RLS - on meds, needs enough H/o of thrombocytopenia in the past, improved h/o tachycardia in the past Ex- smoker- quit in 2013, smoked for years HTN- bp under controlMeds- metoprolol bid Hyperlipidemia/ high Trig--advised to diet h/o LFT high- mild, improved Reid Simpson MD [address], [place], [address], [employer] 11/06/2023 16:37:52 02/28/2024 text/html Doing fine, comp liant to medications, no side affects, here for follow up.PT IS FASTING Depression- anxiety and mood under control. no side effects from the med, symptoms are under controlMeds- Sertraline 100 mg qd RLS - on meds and is helpingMeds- Ropinirole 2mg daily H/o of thrombocytopenia in the past, improved h/o tachycardia in the past Ex- smoker- quit in 2013, smoked for years, smoked 1ppd x 20 yrs HTN- bp under controlMeds- Metoprolol bid Hyperlipidemia/ high Trig--advised to diet h/o LFT high- mild, improved Reid Simpson MD [address] [address], [place], [address], [employer] 02/28/2024 10:37:11 04/23/2024 text/html She is here toda y for low back pain, She started doing wall pilates 2 months ago and seems like ever since her right lower back has a dull pain radiating through her right hip down her leg. Her right leg feels tight.sometimes gets tingling in the leg with certain activities.Pain is more on sitting and lying for long time.No injury or fallno fever or urinary symptomsHas had massage's, seen the chiropractor and nothing seems to be helping Reid Simpson MD [address] [address], [place], [address], [employer] 04/23/2024 09:23:48 08/12/2024 text/html Doing fine, comp liant to medications, no side affects, here for follow up.PT IS FASTING ( [facility] ) c/o BOTH KNEE PAIN, MORE ON THE RIGHT, NO SWELLING Depression- anxiety and mood under control. no side effects from the med, sleeps fine, no suicidal thoughtsMeds- Sertraline 100 mg qd RLS - on meds and is helping,Meds- Ropinirole 2mg daily H/o of thrombocytopenia in the past, improved h/o tachycardia in the past Ex- smoker- quit in 2013, smoked for years, smoked 1ppd x 20 yrs HTN- bp under controlMeds- Metoprolol bid Hyperlipidemia/ high Trig--advised to diet h/o LFT high- mild, improved Reid Simpson MD [address], [place], [address], [employer] 08/12/2024 09:08:55 OBGyn Episode No OBEpisode recorded.
--- OUTSIDE RECORDS SUMMARY | 2024-10-12 08:17 | XMS_ITS | Clinical Summary ---
Author Organization [facility] Address [address] [place] [address] Phone Care Team Providers Care Department Specialist Name Role Phone Reid Simpson MD Primary Care Provider [phone] Allergies No known active allergies Medications sertraline (ZOLOFT) 100 mg tablet Take 100 mg by mouth daily. Active biotin 1 mg Capsule Take by mouth. Active lactobac cmb #[id number] e (PROBIOTIC & ACIDOPHILUS) 300-250 million cell-mg Capsule Take by mouth. Active Active Problems Patient Care Coordination No te Formatting of this note migh t be different from the original. Primary Care: Reid Simpson MD Referring Provider: Nicola Arita MD [address] [place] [address] Other: Problem Noted Date Diagnosed Date Mammographic calcification, left 09/25/2014 Overview (04/09/2015): BIRADS 3 Plan 6 month follow-up 04/09/2015 stable. 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 Gender Identity Not on file Sexual Orientation Not on file Last Filed Vital Signs Vital Sign Reading Time Taken Comments Blood Pressure 141/88 04/09/2015 1:33 PM CDT Pulse 112 04/09/2015 1:33 PM CDT Temperature 36.6 C (97.9 F) 04/09/2015 1:33 PM CDT Respiratory Rate - - Oxygen Saturation - - Inhaled Oxygen Concentration - - Weight 66.7 kg (147 lb) 04/09/2015 1:33 PM CDT Height 160 cm (5' 3 ) 04/09/2015 1:33 PM CDT Body Mass Index 26.04 04/09/2015 1:33 PM CDT Plan of Treatment Health Maintenance Due Date Last Done Comments DTAP/TDAP/TD VACCINES (1 - Tdap) 1993 HEPATITIS B VACCINES (1 of 3 - 19+ 3-dose series) 1993 PAP SMEAR 1995 CERVICAL CANCER SCREENING 01/02/2004 HPV/Cotest 01/02/2004 PAP SMEAR 01/02/2004 BREAST CANCER SCREENING 04/09/2016 04/09/20 15, 09/11/2014, 09/09/2014, Additional history exists COLORECTAL SCREENING 2019 Colorectal Cancer Screening 2019 FIT-DNA Q 3 years 2019 FIT/FOBT Q 1 year 2019 Flex Sig/CT Colonography Q 5 years 2019 ZOSTER VACCINE (1 of 2) 01/02/2024 INFLUENZA VACCINE (#1) 2024 PNEUMOCOCCAL VACCINE 0-49 YEARS Aged Out No longer eligible based on patient's age to complete this topic Procedures Procedure Name Priority Date/Time Associated Diagnosis Comments MAMMO DIAGNOSTIC UNI LEFT W OR WO CAD Routine 04/09/2015 12:56 PM CDT Mammographic calcification from Last 3 Months or Most Recently Relevant to Health Maintenance Results * (ABNORMAL) MAMMO DIGITAL DIAG UNI LEFT (04/09/2015 12:56 PM CDT) Anatomical Region Laterality Modality Breast Left Mammography 04/09/2015 12:5 4 PM CDT Narrative 04/10/2015 10:20 AM CDT LEFT BREAST FULL FIELD DIGITAL DIAGNOSTIC MAMMOGRAM WITH CAD DATE: 04/09/15 HISTORY: The patient presents for short-term followup of probably benign microcalcifications within the left breast. TECHNIQUE: Comparison is made with mammograms from [facility] dated 09/09/2014, 08/13/2013 and 08/07/2012. Diagnostic full field digital mammography was performed on the left breast. Computer aided diagnosis was performed. FINDINGS: The breast parenchyma is heterogeneously dense, limiting mammographic sensitivity. No focal mass or architectural distortion is identified. Redemonstrated are scattered microcalcifications within the anterior central left breast which are not significantly changed since at least 09/09/2014 and also appears to have been present on mammograms from 2013 and possibly 2012. No clustered or pleomorphic microcalcifications are seen. CAD was utilized. OVERALL ASSESSMENT: BI-RADS Category 3. Probably benign findings. Stable scattered microcalcifications in the anterior central left breast. Recommend continued diagnostic evaluation of the left breast to document stability. The patient will be due for annual mammography in August 2015. A diagnostic examination including magnification views of the left breast should be performed at that time. Dictated from Rosa Oconnor Camila Patton MD MAMMO ORDERABLES Final Result from Last 3 Months or Most Recently Relevant to Health Maintenance Insurance BLUE ACCESS/TRUE BLUE PPO Care Teams Department Specialist Relationship Specialty Start Date End Date Reid Simpson MD PCP - General Internal Medicine 09/25/14
[2024-10-12 08:20] VITALS: BP 138/85; PULSE 71; RESP 20; TEMP 36.3; O2SAT 98
--- NOTE | 2024-10-12 08:36 | ED_ITS ---
HPI - General Adult General Chief complaint: Urogenital-Female Stated complaint: poss UTI Source: patient Mode of arrival: ambulatory Limitations: no limitations History of Present Illness HPI narrative: Patient presents for evaluation of urinary symptoms for the last 4 days. Symptoms include urinary frequency, urgency, suprapubic pressure, and low back pain. She denies any fever, chills, nausea, vomiting, vaginal bleeding/discharge, dysuria or hematuria. She has had urinary tract infections in the past and this feels similar. Related Data Home Medications ?Medication ?Instructions ?Recorded ?Confirmed ?Last Taken ?Type metoprolol tartrate 50 mg tablet 50 mg PO BID 12/30/19 10/18/23 11/04/20 History sertraline 100 mg tablet 100 mg PO HS 12/30/19 10/18/23 Unknown History lactobacillus combination no.4 3 3,000 mmu cells PO DAILY 10/20/20 10/18/23 Unknown History billion cell capsule (Probiotic) dvzeyikdtpsc-Dh-mqkv-minerals 18 1 tablet PO DAILY 10/20/20 10/18/23 Unknown History mg-0.4 mg tablet Allergies Allergy/AdvReac Type Severity Reaction Status Date / Time codeine Allergy Intermediate Rash Verified 10/18/23 07:56 Review of Systems Review of Systems: CONSTITUTIONAL: Denies fever, chills, or sweats. EYES: Denies visual changes, redness, or discharge. ENT: Denies rhinorrhea, congestion, sore throat, or otalgia. CARDIOVASCULAR: Denies chest pain, palpitations, or edema. RESPIRATORY: Denies cough or dyspnea. GASTROINTESTINAL: Denies abdominal pain, nausea, vomiting, or diarrhea. GENITOURINARY:Reports urinary frequency and urgency. Denies dysuria or hematuria. Reports suprapubic pain. Denies vaginal bleeding or discharge SKIN: Denies rash or itching. MUSCULOSKELETAL: Reports low back pain. Denies joint pain, or myalgia. NEUROLOGIC: Denies headache, numbness, dizziness, or weakness. PSYCHIATRIC: Denies anxiety or depression. [facility] Past Medical History Medical History HSV-1 infection Screening mammogram, encounter for HPV (human papilloma virus) infection Anxiety Hypertension Anxiety and depression Surgical History Surgical History History of cryosurgery 2004 HPV History of hysteroscopy 2001 hscope d&c 11/04/20 hscope d&c History of tubal ligation 04/11/07 rpt c/s w/btl History of 01/14/00 primary c/s 04/11/07 rpt c/s w/btl Family History Family History Mother Hypertension Father Hypertension Grandparent Lung cancer paternal grandmother Social History Social History Smoking packs per day: 1 Smoking cigarettes per day: 20.0 Years smoked: 25 Smoking pack-years: 25.00 Smoking status: Former smoker Tobacco type: cigarettes Second hand tobacco smoke exposure: No Smoking end date: 08/24/14 Alcohol intake: never Substance use: never Substance use type: does not use Do You Feel Safe in your Home?: Yes Living arrangements: other Additional living arrangements comments: spouse Occupation/Education: occupation 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 HEAD: Normocephalic, atraumatic. EYES: PERRLA and EOMI. ENT: Nares clear, no rhinorrhea or epistaxis. Mucous membranes moist. Oropharynx without tonsillar hypertrophy exudate or other lesions. Bilateral TMs pearly bermudez nonbulging NECK: Supple. No adenopathy or masses. No carotid bruits or JVD CHEST: Clear to auscultation. No respiratory distress. No wheezes rales or rhonchi HEART: Regular rate and rhythm. No murmur heard. Normal peripheral pulses. ABDOMEN: Soft, nontender, nondistended, normal active bowel sounds. BACK: No CVA tenderness EXTREMITIES: Normal range of motion. No edema. SKIN: Warm, dry, no rash. NEURO: No focal deficits. Alert and oriented x3. PSYCH: Normal mood and affect. Course Course Emergency Course: This is a 49-year-old female who presented for evaluation of urinary symptoms. She has no evidence of UTI on exam today. Recommend following up with her primary care provider and go to the ER for recurrent or worsening symptoms. Patient in agreement with plan of care Level of Care: Express Care Visit Vital Signs Vital signs: Vital Signs Temperature 36.3 C L 10/12/24 08:20 Pulse Rate 71 10/12/24 08:20 Respiratory Rate 20 10/12/24 08:20 Blood Pressure 138/85 10/12/24 08:20 Pulse Oximetry 98 10/12/24 08:20 Oxygen Delivery Room Air 10/12/24 08:20 Temperature 36.3 C L 10/12/24 08:20 Pulse Rate 71 10/12/24 08:20 Respiratory Rate 20 10/12/24 08:20 Blood Pressure 138/85 10/12/24 08:20 Pulse Oximetry 98 10/12/24 08:20 Oxygen Delivery Room Air 10/12/24 08:20 Medical Decision Making Vital Signs Vital Signs: Vital Signs Temperature 36.3 C L 10/12/24 08:20 Pulse Rate 71 10/12/24 08:20 Respiratory Rate 20 10/12/24 08:20 Blood Pressure 138/85 10/12/24 08:20 Pulse Oximetry 98 10/12/24 08:20 Oxygen Delivery Room Air 10/12/24 08:20 Temperature 36.3 C L 10/12/24 08:20 Pulse Rate 71 10/12/24 08:20 Respiratory Rate 20 10/12/24 08:20 Blood Pressure 138/85 10/12/24 08:20 Pulse Oximetry 98 10/12/24 08:20 Oxygen Delivery Room Air 10/12/24 08:20 Lab Data Labs: Lab Results 10/12/24 Range/Units 08:40 POC Urine Color Yellow POC Urine Clarity Cloudy POC Urine pH 5.5 POC Ur Specif [place] 1.025 POC Urine Protein Negative (Negative) POC Ur Glucose (UA) Negative (Negative) POC Urine Ketones Negative (Negative) POC Urine Blood Negative (Negative) POC Urine Nitrite Negative (Negative) POC Urine Bilirubin Negative (Negative) POC Urine Urobilinogen 0.2 POC U Leukocyte Esteras Negative (Negative) Discharge Plan Discharge Clinical Impression: Urinary frequency Patient Disposition: Home, Self-Care Condition: Stable Instructions: Antibiotic Form, Urinary Urgency and Frequency (DC) Patient Language: Slovenian Prescriptions: No Action sertraline 100 mg tablet 100 mg PO HS metoprolol tartrate 50 mg tablet 50 mg PO BID tolterodine [Detrol LA] 4 mg capsule,extended release 24hr 4 mg PO DAILY Qty: 90 3RF qdoaqmcgoilu-Vw-fyxp-minerals 18-0.4 mg Tablet 1 tablet PO DAILY Probiotic 3 billion cell Capsule 3,000 mmu cells PO DAILY acyclovir 400 mg tablet 400 mg PO TID Qty: 21 4RF Follow-up/Referrals: Tatiana,Reid Hussein MD [Primary Care Provider] - Time of Disposition: 08:45
[2024-10-12 08:42] LABS: EDUAAPPEAR Cloudy; EDUABILI Negative (Negative); EDUABLOOD Negative (Negative); EDUACOLOR1 Yellow; EDUAGLUCOSE Negative (Negative); EDUAKETONE Negative (Negative); EDUALEUKO Negative (Negative); EDUANITRATE Negative (Negative); EDUAPH 5.5; EDUAPROTEIN Negative (Negative); EDUASPGRAVITY 1.025; EDUAUROBILI 0.2
== END 2024-10-12 08:49 | disposition home or self-care (01) ==
PROVIDERS: Emergency Provider Nurse Practitioner; PCP Internal Medicine
DX: R35.0 Frequency of micturition (principal); I10 Essential (primary) hypertension; Z87.891 Personal history of nicotine dependence
CPT/HCPCS: 81003; 99212; G0463

== ENCOUNTER 2024-11-27 08:09 | Outpatient (CLI) | payer OTHER, SELFPAY ==
--- NOTE | ~2024-11-27 | MM_ITS ---
EXAMINATION: MM screening suhas BI w batsheva HISTORY: Screening TECHNIQUE: Craniocaudal and mediolateral oblique 3-D tomosynthesis images were obtained and synthetic 2-D images were generated. CAD analysis was submitted and interpreted. COMPARISON: Comparison to multiple prior studies sequentially, with oldest reviewed study dated 07/2018. BREAST PARENCHYMAL COMPOSITION: Not dense: There are scattered areas of fibroglandular density. FINDINGS: There is no evidence of suspicious mass, calcification, or architectural distortion to sugg est malignancy in either breast. There has been no suspicious interval change. IMPRESSION: 1. No mammographic evidence of malignancy. 2. Recommend routine screening mammography in one year. BI-RADS Category 1: Negative Reviewed, dictated and finalized at location A.
--- OUTSIDE RECORDS SUMMARY | 2024-11-27 08:19 | XMS_ITS | Encounter Summary ---
Author Organization [facility] Address [address] [place] [address] Care Team Providers Care Marine Tower Operator Name Role Phone Reid Simpson MD Primary Care Provider [phone] Encounter Details Date Type Department Care Team (Late st Contact Info) Description 06/24/2004 [facility] [address] [place] [address] [id number] 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
--- OUTSIDE RECORDS SUMMARY | 2024-11-27 08:19 | XMS_ITS | Clinical Summary ---
Author Organization [facility] Address [address] [place] [address] [address] Phone Care Team Providers Care Inspector Repairer Name Role Phone Reid Simpson MD Primary Care Provider [phone] Allergies No known active allergies Medications sertraline (ZOLOFT) 100 mg tablet Take 100 mg by mouth daily. Active biotin 1 mg Capsule Take by mouth. Active lactobac cmb #4-pkj-vbhcvmiuo e (PROBIOTIC & ACIDOPHILUS) 300-250 million cell-mg Capsule Take by mouth. Active Active Problems Patient Care Coordination No te Formatting of this note migh t be different from the original. 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 Gender Identity Not on file Sexual [...] of 3 - 19+ 3-dose series) 1993 HPV/Cotest (21-29) 1995 CERVICAL CANCER SCREENING 01/02/2004 HPV/Cotest (30-65) 01/02/2004 PAP SMEAR 01/02/2004 BREAST CANCER SCREENING 04/09/2016 04/09/20 15, 09/11/2014, 09/09/2014, Additional history exists COLORECTAL SCREENING 2019 Colorectal Cancer Screening 2019 FIT-DNA Q 3 years 2019 FIT/FOBT Q 1 year 2019 Flex Sig/CT Colonography Q 5 years 2019 ZOSTER VACCINE (1 of 2) 01/02/2024 INFLUENZA VACCINE (#1) 2024 Procedures Procedure Name Priority Date/Time Associated Diagnosis [...] TECHNIQUE: Comparison is made with mammograms from [facility] dated 09/09/2014, 08/13/2013 and 08/07/2012. Diagnostic full [...] Most Recently Relevant to Health Maintenance Insurance [facility] BLUE ACCESS/TRUE BLUE PPO Care Teams Inspector Repairer Relationship Specialty Start Date End Date Reid Simpson MD PCP - General Internal Medicine 09/25/14
--- OUTSIDE RECORDS SUMMARY | 2024-11-27 08:19 | XMS_ITS | Data Portability ---
Author Organization [facility] [employer], Main Office Address [address] [place] [address] Assessment No assessment recorded. Plan of Treatment Reminders Order Date Submit Date Provider Last Modified By Organization Details Last Modified Time Details Appointments Any 15 2024 08:15A Gabriel Simpson MD Not available Not available Not available Lab vitamin D, 25-hydrox y, total, serum [email or web address] (Lab), [address] [place], [address], 08/21/2024 09:13:30 lipid panel, serum [facility] [address] [place], [address], 08/14/2024 15:14:02 glycohemo globin, total, blood [address] (Lab), [address] [place], [address], 08/21/2024 09:13:29 CBC [email or web address] (Lab), [address] [place], [address], 08/21/2024 09:13:29 CMP, serum or plasma [address] (Lab), [address] [place], [address], 08/21/2024 09:13:29 ferritin, serum or plasma 2023 024 [facility] (Lab), [address] [place], [address], 08/22/2023 21:53:34 iron, serum 2023 024 [facility] (Lab), [address] [place], [address], 08/22/2023 22:02:36 Referral None recorded. Procedures None recorded. Surgeries None recorded. Imaging XR, knee, 3 view 2024 025 [email or web address] Not available 08/12/2024 14:22:30 XR, lumbar spine 2023 024 [facility] Not available 04/23/2024 15:36:47 XR, sacroilia c joint(s) 2023 024 [facility] Not available 04/23/2024 15:36:48 Medication Orders meloxicam 7.5 mg tablet 2024 025 [facility] #88060, [address], [id number], 08/12/2024 09:07:18 Medrol (Jules) 4 mg tablets in a dose pack 2023 024 [email or web address] [facility] #69821, [address], [place], [place], [id number], 07/04/2024 14:33:01 ropinirol e 2 mg tablet 2023 024 [facility] #22758, [address], [place], [place], [id number], 11/06/2023 18:32:21 metoprolo l tartrate 50 mg tablet 2023 024 [facility] #11503, [address], [place], [place], [id number], 11/06/2023 18:38:38 sertralin e 100 mg tablet 2023 024 [facility] #55153, [address], [place], [place], [id number], 11/06/2023 18:38:32 ropinirol e 1 mg tablet 2023 024 [email or web address] [facility] #31605, [address], [place], [place], [id number], 11/06/2023 15:52:19 Patient TargetsNo targets recorded. Patient Instructions Encounter Date Encounter Id Patient Instructions Last Modified By Organization Details Last Modified Time 11/06/2023 [id number] risk assessment* [place] [id number] Not availabl e 11/06/2023 15:53:47 INFLUENZA VACCIN [...] SCREENING Not indicated GLUCOSE SCREENING LIPID SCREENING [email or web address] Not available 11/06/2023 15:33:56 Reason for Referral None Reported. Results Created Date Observation Date Name Description Value Unit Range Abnormal Flag Note LastModifiedBy Organization Detail LastModifiedTime 08/22/19 24 08/22/2023 MARION TIN ferritin 29 NG/mL 6.24-1 37 Not Available [facility] (Lab) [address] [place], [address], 08/22/2023 21:53:34 08/22/19 24 08/22/2023 IRON SERUM /FE iron 100 mcg/d L 42-175 Not Available [facility] (Lab) [address] [place], [address], 08/22/2023 22:02:36 04/23/20 24 04/23/2024 XR, lumba r spine No observ ation record ed. [email or web address] Not Available 08/2023 12:44:18 04/23/20 24 04/23/2024 XR, sacro iliac joint (s) No observ ation record ed. [email or web address] Not Available 08/2023 12:44:19 08/12/19 25 08/12/2024 XR, knee, 3 view No observ ation record ed. [email or web address] Not Available 2024 14:10:42 10/31/19 25 05/03/2021 colon oscop y proce dure (PROC ) No observ ation record ed. BARCODE Not Available 2024 18:24:56 Result Notes None recorded. Problems Name Problem SNOMED Code Status Onset Date Resolution Date Notes Provider Name and Address Organization Details Recorded Time Mammograp hy abnormal 535759848 Completed Not Available [facility] 3 00:49:22 Lateral epicondyl itis 845149459 Completed Not Available [facility] 3 00:49:22 Adult health examinati on Active 2020 Not Available [facility] 3 00:49:22 Finding of body mass index 318501486 Completed 202107/14/2022 Not Available [facility] 3 00:49:22 Thrombocy topenic disorder 142959287 Active Not Available [facility] 3 00:49:23 Tachycard ia 5312950 Active Not Available [facility] 3 00:49:23 Depressiv e disorder 23783511 Active Not Available [facility] 3 00:49:23 Pain of multiple joints 47186778 Completed 202107/20/2022 Not Available [facility] 3 00:49:23 Pain of multiple joints 35687670 Completed 202107/14/2022 Not Available [facility] 3 00:49:23 Rosacea 676510517 Active Not Available [facility] 3 00:49:23 Anxiety 36565302 Active Not Available [facility] 3 00:49:23 Hyperlipi demia 70291077 Active 2021 Not Available [facility] 3 00:49:23 Essential hypertens ion 80744829 Active 2020 Not Available [facility] 3 00:49:23 Diarrhea 78215605 Completed 202103/07/2023 Baylee frias RMA null, [place] - [facility] 3 10:44:31 Diarrhea 95168488 Completed 202107/14/2022 Baylee frias RMA null, [facility] 3 10:44:31 Mammograp hic calcifica tion of breast 421073230 Completed Not Available [facility] 3 00:49:24 Rhinitis 24125400 Active Not Available [facility] 3 00:49:24 Smoker 54477635 Active Not Available [facility] 3 00:49:24 Fatigue 53663375 Completed 202107/14/2022 Reid Simpson MD [address], [place], [address] , [employer] [facility] 4 15:55:54 Ex-smoker 1859849 Active 2022 Baylee frias RMA null, [facility] [facility] 3 10:44:49 Neck pain 05941439 Active 2022 Reid Simpson MD [address], [place], [address] , [facility] 3 11:03:14 Liver function tests outside reference range 846651049 Active 2022 Reid Simpson MD [address], [place], [address] , [place] [facility] 3 15:47:44 Restless legs 11269834 Active 2023 MANUELA Mendieta null, [place] [facility] 4 09:08:55 Fatigue 32789192 Active 2023 Reid Simpson MD [address], [address], [place], [address] , [place] [facility] 4 15:55:54 Hyperglyc emia 30395042 Active 2023 Reid Simpson MD [address], [place], [address] , [place] [facility] 4 10:36:37 Low back pain 879471871 Active 2023 Reid Simpson MD [address], [place], [address] , [place] [facility] 4 09:14:25 Pain of right knee joint 64580588563 4100 Active 2024 Reid Simpson MD [address], [place], [address] , [place] [facility] 5 09:01:36 Vitamin D deficienc y 27528168 Active 2024 Laura Landrum MA null, [place] [facility] 5 15:14:19 Pain of bilateral knee joints 20467134146 4104 Active 2024 Reid Simpson MD [address], [place], [address] , [place] [facility] 5 16:42:53 Problem Notes None recorded. Procedures Surgical History Date Name Laterality Status Provider Name and Address Organization Details Recorded Time 1 [employer] Surgery completed Not Available [facility] 09/22/19 00:44:19 1 Date of Last Pap Smear completed Not Available [facility] 09/21/2022 00:44:14 1 Most Recent Mammogram completed Not Available [facility] 09/21/2022 00:44:14 7 section completed Not Available [facility] 09/21/2022 00:44:19 0 section completed Not Available [facility] 09/21/2022 00:44:19 [employer] Surgery completed Not Available [facility] 09/21/2022 00:44:19 [employer] Surgery completed Not Available [facility] 09/21/2022 00:44:19 Imaging Results Imaging Date Name Status LastModified by Organiz ation Details LastModified Time 04/23/2024 XR, lumbar spine completed [email or web address] Information not available 04/24/2024 12:44:18 04/23/2024 XR, sacroiliac joint(s) completed [email or web address] Information not available 04/24/2024 12:44:19 08/12/2024 XR, knee, 3 view completed [email or web address] Information not available 08/13/2024 14:10:42 05/03/2021 colonoscopy procedure (PROC) completed [email or web address] Information not available 10/30/2024 18:24:56 Procedure Notes None recorded. Medical Equipment None Reported. Allergies Allergen ID Allergen Name Allergen Category Reaction Reaction Severity Criticality Documentation Date Start Date Code Code System Note Provider Name and Address Organization Details Recorded Time 781 codeine medicatio n rash Not available Not available 09/21/2022 2670 RxNorm Not Available [facility] 00:56:25 Medications Name Sig Start Date Stop [...] MOUTH EVERY DAY 2024 active ANDRES 08/12/24 01/21/25 ok to rf Not Available Not Available Not Available hydrocort isone 1 % topical cream APPLY A THIN LAYER TO THE AFFECTED AREA(S) BY TOPICAL ROUTE 2 TIMES PER DAY active Not Available Not Available No t Available ropinirol e 2 mg tablet Take 1 tablet every day by oral route at bedtime. 2024 active ANDRES 08/12/24 NOV 01/21/25 ok [...] Updated DateTime 4 157.48 cm 29.3 kg/m2 53563.7 8 g 97.2 [degF] 97 % 97 % 72 /min 124 mm[Hg] 76 mm[Hg] Renea Desai CMA [place] [facility] 4 15:31:54 Date Recorded Body height Body mass index (BMI) Body weight Heart rate Oxygen saturation Oxygen saturation in Arterial blood by Pulse oximetry Systolic blood pressure Diastolic blood pressure Provider Name and Address Organization Details Last Updated DateTime 4 157.48 cm 30.1 kg/m2 64130.9 4 g 72 /min 96 % 96 % 116 mm[Hg] 68 mm[Hg] Su Wong [facility] [employer] [facility] 4 15:25:40 Date Recorded Body height Body mass index (BMI) Body weight Body temperature Heart rate Oxygen saturation Oxygen saturation in Arterial blood by Pulse oximetry Systolic blood pressure Diastolic blood pressure Provider Name and Address Organization Details Last Updated DateTime 4 157.48 cm 29.6 kg/m2 60581.9 6 g 97.2 [degF] 71 /min 97 % 97 % 120 mm[Hg] 68 mm[Hg] Baylee morgan [facility] [employer] [facility] 4 09:48:07 Date Recorded Body height Body mass index (BMI) Body weight Heart rate Oxygen saturation Oxygen saturation in Arterial blood by Pulse oximetry Body temperature Systolic blood pressure Diastolic blood pressure Provider Name and Address Organization Details Last Updated DateTime 4 157.48 cm 28.9 kg/m2 63139.5 9 g 63 /min 97 % 97 % 97.1 [degF] 142 mm[Hg] 80 mm[Hg] Baylee morgan [facility] [employer] [facility] 4 09:05:53 Date Recorded Body height Body mass index (BMI) Body weight Body temperature Heart rate Oxygen saturation Oxygen saturation in Arterial blood by Pulse oximetry Systolic blood pressure Diastolic blood pressure Provider Name and Address Organization Details Last Updated DateTime 5 157.48 cm 29.1 kg/m2 96592.1 9 g 97.2 [degF] 65 /min 98 % 98 % 124 mm[Hg] 74 mm[Hg] Baylee morgan [facility] [employer] [facility] [employer] [facility] 5 08:41:08 Social History Question Answer Notes LastModified by Organizat ion Details LastModified Time Tobacco Smoking Status Never Smoker quit 2014 Not Available [facility] 09/21/2022 00:42:23 What Is Your Level Of Alcohol Consumption? None [id number] Information not available 09/21/2022 What Is Your Level Of Caffeine Consumption? Moderate [id number] Information not available 09/21/2022 How Much Tobacco Do You Chew? None MIGRATION.[id number] Information not available 09/21/2022 What Type Of Diet Are You Following? REGULAR [id number].[id number] Information not available 09/21/2022 Which Illicit Or Recreational Drugs Have You Used? None [id number] Information not available 09/21/2022 Do You Or Have You Ever Used E-cigarettes Or Vape? Never Used Electronic Cigarettes [id number].[id number] 2000 Information not available 09/21/2022 What Is Your Occupation? [employer] MIGRATION.[id number] 4821 Information not available 09/21/2022 What Was The Date Of Your Most Recent Tobacco Screening? 12/28/2020 MIGRATION.[id number] Information not available 09/21/2022 At What Age Did You Start Smoking Tobacco? 15 MIGRATION.[id number] Information not available 09/21/2022 Do You Or Have You Ever Used Smokeless Tobacco? Never Used Smokeless Tobacco MIGRATION.[id number] 0001 Information not available 09/21/2022 Do You Use Sunscreen Routinely? Yes MIGRATION.881876 7919 Information not available 09/21/2022 How Many Years Have You Smoked Tobacco? 20 MIGRATION.111996 2592 Information not available 09/21/2022 Sex: Female Functional Status Question Answer Note LastModified by Organizat ion Details LastModified Time What is your exercise level? Moderate [id number] Information not available 09/21/2022 Mental Status None recorded. Family History Relationship Description Onset Age of this Age Resolved Age Notes LastModified by Organization Details LastModified Time Father Hypertensive disorder [id number] Not available 09/21/2022 00:44:20 Paternal Grandmother Malignant neoplasm of lung [email or web address] Not available 2024 08:28:28 [...] Vaccine Type Date Status Note Provider Nam toño and Address Organization Details Recorded Time TST-PPD intradermal 1 completed Not Available [facility] 09/21/2022 00:56:07 TST-PPD intradermal 8 completed Not Available [facility] 09/21/2022 00:56:07 Influenza, split virus, quadrivalent, preservative 1 completed Not Available [facility] 09/21/2022 00:56:07 COVID-19, mRNA, LNP-S, PF, 30 mcg/0.3 mL dose 1 completed Not Available [facility] 09/21/2022 00:56:07 COVID-19, mRNA, LNP-S, PF, 30 mcg/0.3 mL dose 1 completed Not Available [facility] 09/21/2022 00:56:07 Influenza, split virus, quadrivalent, preservative 0 completed Not Available [facility] 09/21/2022 00:56:07 Influenza, split virus, quadrivalent, PF 2 completed Not Available [facility] 09/21/2022 00:56:08 Past Encounters Encounter ID Performer Location Encounter Start Date Encounter Closed Date Diagnosis/Indication Diagnosis SNOMED-CT Code Diagnosis ICD10 Code Diagnosis Note [id number] [facility] _[facility]HENA_M IGRATION_ DEFAULT_1 _1 , 09/23/2020 00:00:00 09/23/2020 09:57:09 [id number] [facility] _ATHENA_M IGRATION_ DEFAULT_1 _1 , 10/26/2020 00:00:00 10/26/2020 17:23:54 [id number] [facility] _ATHENA_M IGRATION_ DEFAULT_1 _1 , 11/20/2020 00:00:00 11/20/2020 09:35:52 [id number] Reid Simpson MD [facility] [address] [address] 12/15/2020 00:00:00 12/15/2020 10:19:49 [id number] Reid Simpson MD [facility] [address] [address] 12/28/2020 00:00:00 12/28/2020 16:40:25 [id number] Reid Simpson MD [facility] [address] [place] [address] 04/09/2021 00:00:00 04/09/2021 15:09:15 [id number] Reid Simpson MD [facility] [address] [place] [address] 07/12/2021 00:00:00 07/12/2021 10:35:52 [id number] Reid Simpson MD [facility] [address] [place] [address] 12/29/2021 00:00:00 12/29/2021 13:32:48 [id number] Reid Simpson MD [facility] [address] [place] [address] 07/14/2022 00:00:00 07/14/2022 11:02:55 [id number] Reid Simpson MD Marta[facility] [address] [facility] [place] [address] 03/07/2023 10:14:09 03/07/2023 11:07:34 Anxiety 69695274 F41.9 stable Essential hypertension 43273676 I10 under control Depressive disorder 3548 9007 F32.9 under control Hyperlipidemia 15027001 E78.5 advised to watch diet Thrombocyt openic disorder 399434209 D69.6 stable Ex-smoker 5247766 Z87.89 1 Quit at the age of 39 Adult [facility] th examination 457957529 Z00.00 Mammo- 3Col onoscopy- 04/2021- Dr. Chinchilla. - in chartCovid - 1 vaccineFlu - 2020 Neck pain 81145554 M54.2 [id number] Reid Simpson MD [facility] [address] [place] [address] 07/05/2023 15:23:35 07/05/2023 15:48:20 Adult health examination 633425657 Z00.00 Z13.220 Mammo- 3Col onoscopy- 04/2021- Dr. Chinchilla. - in chartCovid - 1 vaccineFlu - 2022 Depressive disorder 3548 9007 F32.9 under control Anxiety 38767120 F41.9 under control Essential hypertension 04968625 I10 under control Hyperlipidemia 51129320 E78.5 advised to watch diet Thrombocyt openic disorder 386193145 D69.6 stable Ex-smoker 4467639 Z87.89 1 Quit at the age of 39 Liver func tion tests outside reference range 610991720 R94.5 minimal, advised to be on the low fat diet [id number] Reid Simpson MD [facility] [address] [facility] [place] [address] 08/22/2023 15:13:28 08/22/2023 16:06:30 Essential hypertension 97220513 I10 under control, could be up due to cold meds, now better Restless legs 57947405 G 25.81 [id number] Reid Simpson MD [facility] [address] [place] [address] 11/06/2023 15:20:05 11/06/2023 15:55:26 Adult health examination 607959715 Z00.00 Mammo- ol onoscopy- 04/2021- Dr. Chinchilla. - in chartCovid - 1 vaccineFlu - 2022 Depression screening 171 456109 Z13.31 Anxiety 82788324 F41.9 under control Depressive disorder 3548 9007 F32.9 under control Essential hypertension 16643461 I10 under control Hyperlipidemia 39327461 E78.5 advised to watch diet Thrombocyt openic disorder 401918179 D69.6 stable Ex-smoker 5523411 Z87.89 1 Quit at the age of 39 Liver func tion tests outside reference range 202242226 R94.5 lose weight Restless legs 49794441 G 25.81 ^ the dose Fatigue 97040556 R53.83 may need sleep study [id number] Reid Simpson MD [facility] [address] [place] [address] 02/28/2024 09:40:37 02/28/2024 10:36:17 Adult health examination 268774269 Z00.00 Mammo- 09/2023 Osmel (not in chart)[place] noscopy- 04/2021- Dr. Chinchilla. - in chartCovid - 1 vaccineFlu - 2022 Anxiety 11200590 F41.9 under control Depressive disorder 3548 9007 F32.9 under control Essential hypertension 06537991 I10 under control Hyperlipidemia 73677649 E78.5 advised to watch diet Thrombocyt openic disorder 555991714 D69.6 improved Ex-smoker 5072995 Z87.89 1 Quit at the age of 39, smoked 1ppd x 20 yrs, wants to get LDCT next time Liver func tion tests outside reference range 411491148 R94.5 lose 10 lbs weight by next visit Restless legs 71837566 G 25.81 much better Fatigue 34258273 R53.83 improved Hyperglycemia 95257679 R 73.9 labs next time, watching diet [id number] Reid Simpson MD [facility] [address] [address] 04/23/2024 08:58:18 04/23/2024 09:24:23 Low back pain 079567422 M54.50 stretching discussed [id number] Reid Simpson MD [facility] [address] [address] 08/12/2024 08:27:07 08/12/2024 09:16:26 Anxiety 29979670 F41.9 under control Depressive disorder 3548 9007 F32.9 under control Essential hypertension 03649872 I10 under control Hyperlipidemia 11257773 E78.5 advised to watch diet Thrombocyt openic disorder 452522795 D69.6 improved Ex-smoker 4235537 Z87.89 1 Quit at the age of 39, smoked 1ppd x 20 yrs, wants to get LDCT next time Liver func tion tests outside reference range 961347082 R94.5 labs Restless legs 45378626 G 25.81 much better Adult heal th examination 117201993 Z00.00 Mammo- 09/2023 Osmel (not in chart)[place] noscopy- 04/2021- Dr. Chinchilla. - in chartCovid - 1 vaccineFlu - Declined Hyperglycemia 15663719 R 73.9 watching diet Long-term drug therapy 898869969 Z79.891 Pain of ri ght knee joint 5342393932 06159 M25.561 Health Concerns Section Related Observation LastModified by Organization Detai ls LastModified Time None Recorded Concern Status LastModified by Organization Details LastModified Time None Recorded Advance Directives Directive None Recorded Payers Encounter Date Sequence Insurance Name Policy Number Policy Velazquez Covered Member ID Velazquez Member ID Guarantor Name 08/22/2023 1 [facility] [id number] Anjali Epoch Colin [id number] Anjali J Colin 11/06/2023 1 [facility] [id number] Anjali L Colin [id number] Anjali J Colin 02/28/2024 1 [facility] [id number] Anjali L Colin [id number] Anjali J Colin 04/23/2024 1 [facility] [id number] Anjali L Colin [id number] Anjali J Colin 08/12/2024 1 [facility] [id number] Anjali Epoch Colin [id number] Anjali J Colin Notes Date Note Type Note Provider [...] getting bothered by it. Reid Simpson MD [address] [place] [address], [facility] [address], [place], [address], [facility] 08/22/2023 16:00:15 11/06/2023 text/html Doing fine, comp [...] Simpson MD [address], [place], [address], [email or web address] 11/06/2023 16:37:52 02/28/2024 text/html Doing fine, comp [...] mild, improved Reid Simpson MD [address], [place], [address], [email or web address] 02/28/2024 10:37:11 04/23/2024 text/html She is here [...] seems to be helping Reid Simpson MD [address], [place], [address], [employer] [facility] [employer] 04/23/2024 09:23:48 08/12/2024 text/html Doing fine, comp liant to medications, no side affects, here for follow up.PT IS FASTING ( [facility] ) c/o BOTH KNEE PAIN, MORE ON [...] high- mild, improved Reid Simpson MD [address] [facility], [facility] [address], [place], [address], [facility] - [facility] 08/12/2024 09:08:55 OBGyn Episode No OBEpisode recorded.
--- OUTSIDE RECORDS SUMMARY | 2024-11-27 08:19 | XMS_ITS | Encounter Summary ---
Author Organization [facility] Address 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 Name Role Phone Reid Simpson MD Primary Care Provider [phone] Encounter Details Date Type Department Care Team (Late st Contact Info) Description 06/24/2004 [facility] [address] [place] [id number] Anjali Brown MD [facility] [place] [phone] Social History Tobacco Use Types Packs/Day Years Used Date Smoking Tobacco: Never Assessed Comments Unknown Sex and Gender Information Value Date Recorded Sex Assigned at Not on file 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
== END 2024-11-27 08:10 | disposition home or self-care (01) ==
LOC: ANHIMG 08:10
PROVIDERS: PCP Internal Medicine; Visit Provider Obstetrics & Gynecology
DX: Z12.31 Encounter for screening mammogram for malignant neoplasm of breast (principal)
CPT/HCPCS: 77063; 77067

== ENCOUNTER 2025-02-03 08:21 | Outpatient (CLI) | payer OTHER, SELFPAY ==
--- NOTE | ~2025-02-03 | CT_ITS ---
Non-contrast CT scan of the Abdomen and Pelvis Clinical indication: Back pain, possible kidney stone Technique: 2.5 mm axial scans were obtained through the abdomen and pelvis without intravenous or or al contrast. Dose reduction technique was used on this scan by utilizing automated exposure control a nd iterative reconstruction technique. The dose-length product (DLP) was 339.29 mGy-cm. Findings: Images through the lung bases reveal no abnormalities. There is no evidence of renal or ureteral calculi. The kidneys and the ureters are nondilated. Protoc ol 1.6 cm left renal artery aneurysm which is densely calcified peripherally. The liver, spleen, pancreas, gallbladder, and adrenals appear normal. There is no aortic aneurysm. There is no evidence of bowel obstruction. Images through the pelvis were performed. There is no evidence of ascites or lymphadenopathy. Urinary bladder unremarkable. No pelvic mass seen. No ascites. Impression: 1.6 cm densely calcified left renal artery aneurysm. No other significant findings. Reviewed, dictated and finalized at [facility]. Impression: 1.6 cm densely calcified left renal artery aneurysm. No other significant findings.
== END 2025-02-03 08:22 | disposition home or self-care (01) ==
PROVIDERS: PCP Internal Medicine; Visit Provider Internal Medicine
DX: I72.2 Aneurysm of renal artery (principal)
CPT/HCPCS: 74176